=== PATIENT | female | born 1940 | race Caucasian/White ===

== ENCOUNTER → 2020-07-01 | Outpatient (CLI) | payer OTHER, BC ==
[~2020-07-01] VITALS: Ht 162.6 cm; Wt 68.0 kg
[~2020-07-01] MED LIST: AMBIEN 5 MG TABL5 M1 PO; AMLODIPINE BESY10 MG PO; DEXILANT60 MG PO; DIAZEPAM 2MG TAB2 MG PO; HYDROCODON-ACE1 EAC7 PO; LIPITOR40 MG PO; METHYLPHENIDATE20 M7 PO; MICARDIS 80 MG80 MG PO; PRISTIQ100 MG PO; TRIAMTERENE-HC1 EAC3 PO; ZANAFLEX4 M1 PO
[2020-07-01 13:50] VITALS: BP 145/72
--- NOTE | 2020-07-01 14:21 | NUR ---
Pain Clinic Assessment: 1. History of Osteoarthritis: HIPS WRISTS SPINE History of Rheumatoid Arthritis: Not Applicable 2. Height: 5 ft. 4 in. 162.6 cm. Weight: 150.0 lb. oz. 68.040 kg. Patient's BMI: 25.7 3. Vital Signs: BP: 145/72 Pulse: 80 Resp: 20 Temp: 02 Sat: 100 ECG Mon: 4. Pain Intensity: 6-8 5. Fall Risk: Dizziness: Y Needs help standing or walking: Y Fallen in the last 3 months: N Fall risk comments: 6. Patient on Blood Thinner: None 7. History of Hypertension: Y 8. Opioid Therapy greater than 6 weeks: N Opiate Contract Signed: 9. Risk Assessment Tool Provided: 2-LOW RISK 10. Functional Assessment Tool: 11. Recreational Drug Use: Never Drug Type: Tobacco Use: Never Smoker Tobacco Type: Amount or Packs/day: How Many Years: Alcohol Use: Yes Frequency: Weekly Quant: 4-5 DRINKS
--- NOTE | 2020-07-09 11:11 | HPC ---
[facility] [address] [place] [address] PAIN MANAGEMENT CONSULTATION Name: LISBET KUMAR Room #: REG Maurice Delbert.#: [id number] Admission: 07/01/20 Attend Phys: Carlos Hickey DO Discharge: Date of : 42 Report #: [id number] CC: Carlos Samson MD DATE OF SERVICE: 07/01/2020 CHIEF COMPLAINT: Neck pain. HISTORY OF PRESENT ILLNESS: As you know, the patient is a very pleasant 79-year-old female who reports acute onset of neck pain that began 05/20/2020. The patient denies injury or trauma that may have led to symptom development. She sought evaluation through her primary care physician as her symptoms did not improve with conservative treatment such as hcyz-[id number]-[id number] medications, rest and relaxation. She was sent for physical therapy and has been undergoing physical therapy for the past 3 weeks with transient improvement in health. She continues to take Aleve and Tylenol with some efficacy. She has recently received a prescription of hydrocodone, which she reports is somewhat beneficial. Due to lack of improvement with conservative treatment options, the patient was referred to our clinic to discuss options for treatment for neck pain. The patient indicates today her pain is continuous, steady and constant. She describes her pain as aching, throbbing and tender. She places current pain score 6/10, daily average is 6-8/10, worst pain has been is 8/10. The patient states that her pain is exacerbated with movement of the head and neck, improves with remaining still and physical therapy. She has been referred to our service to discuss treatment options for axial cervical spine pain. PAST MEDICAL HISTORY: 1. Insomnia. 2. Osteoarthritis. 3. GERD. 4. Anxiety disorder. 5. Depression. 6. 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 7. Human papilloma virus. PAST SURGICAL HISTORY: Hysterectomy, bilateral knee replacement. SOCIAL HISTORY: The patient reports she is a lifelong nonsmoker. Denies IV or illicit drug use. Denies any chronic alcohol use. She is . 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 She is not receiving workmen's compensation nor is she trying to obtain disability benefits. She is not in litigation in regards to pain. REVIEW OF SYSTEMS: Positive for fatigue and weakness, frequent and recurrent headaches, eye disease, cataracts, hearing loss with tinnitus, nocturia, frequent and recurrent headaches, depression and nervousness. All other review of systems negative per 12-point review of systems other than those listed in history of present illness. Pain impact score 20/70, mild interference of daily activities secondary to pain. ALLERGIES: PENICILLIN, AMPICILLIN AND ERYTHROMYCIN. CURRENT MEDICATIONS: Diazepam 2 mg once a day, tizanidine 4 mg t.i.d. p.r.n., hydrocodone/acetaminophen 5/325 1 to 2 tabs p.o. q. 8 hours p.r.n. for pain, amlodipine 10 mg per day, zolpidem 5 mg p.o. at bedtime, methylphenidate 20 mg twice a day, desvenlafaxine 100 mg once a day, atorvastatin 40 mg once a day, telmisartan 80 mg once a day, triamterene/hydrochlorothiazide 75/50 one tab per day, Dexilant 60 mg per day. IMAGING: MRI of the brain without contrast shows cerebral atrophy with extensive small vessel ischemic disease. No evidence of acute infarct, mass or hemorrhage. MRI of the cervical spine obtained on 06/24/2020 shows multilevel degenerative disk disease and facet hypertrophy. There is no significant central canal stenosis. There is zuxz-jm-[id number] foraminal stenosis at multiple levels, mainly at the C3-C4, C4-C5, C5-C6 levels. PQRS: The patient has arthritic changes of the cervical spine and lumbar spine as well as bilateral hips, status post arthroplasty, bilateral knees. No rheumatoid arthritis. She is placing current pain score 6-8/10. She is a fall risk, but has not had a fall in last 3 months. She does not use any type of ambulatory device. She is not on blood thinners, but is treated for hypertension. She is on opioids, but has a low opiate addiction potential based on our assessment tool. Pain impact is 70, mild to moderate interference of daily activities secondary to pain. PHYSICAL EXAMINATION: VITAL SIGNS: Blood pressure 145/72, pulse 80, respiratory rate 20 and unlabored. The patient is 100% on room air. Height 5 feet 4 inches tall, weight 150 pounds, BMI calculated 25.7. GENERAL: Well-developed, well-nourished, well-hydrated, 79-year-old female. She appears her stated age. She is in no acute distress. Pain today is rated at the highest 6-8/10. HEENT: Normocephalic, atraumatic. Pupils are round and reactive. LUNGS: The patient is able to complete sentences without shortness of air. There is no noted coughing or wheezing. CARDIOVASCULAR: Appears regular. EXTREMITIES: Show no clubbing, no cyanosis, and no edema. MUSCULOSKELETAL: Upper extremity strength is equal and symmetrical 5/5. She is intact to light touch from C5-T1 dermatomes. Deep tendon reflexes are symmetrical at biceps, brachioradialis and triceps. Spurling's test is negative. Cervical provocation testing is met with increasing pain. There is palpatory tenderness over the paraspinal musculature of the cervical region. No radicular component. ASSESSMENT: 1. Chronic cervicalgia. 2. Cervical spondylosis without radiculopathy. 3. Myofascial pain. PLAN: 1. Based on today's physical exam and history the patient has provided, the descriptors the patient uses in regards to pain as well as the distribution of symptoms, likely source of the patient's pain is cervical facets. She does not have any radicular component to her symptoms at present nor has she provided any in her recent history. She has been undergoing physical therapy, but has not trialled traction techniques, which I think would be quite beneficial nor is she a trial of myofascial release techniques that would also be much more beneficial than just a simple movement mechanics work that she has been doing today. We also discussed the following treatment options with the patient to address her symptoms further. We discussed physical therapy with the traction techniques as above. We also discussed acupuncture therapy, percutaneous electrical nerve stimulation, myofascial release and chiropractic manipulation as treatment options. We discussed medication management with suggestions of treatment to utilize a consistent nonsteroidal anti-inflammatory and the possible addition of a muscle relaxant on a consistent basis to address the paraspinal muscle spasming she is experiencing in the cervical region. We also discussed adjustments in her bedding to allow for more of a contour pillow, which will put the patient in a more anatomical position from a cervical standpoint. We also discussed interventional treatments that we do not offer radiofrequency lesioning of the cervical facet joints. If this is necessary, we would have the patient then return to her PCP for referral to another clinic to provide that option. We did discuss surgical options, though at this point, I do not feel they would be beneficial. After reviewing the risks and benefits of all proposed treatment options, the patient chose to begin with a more conservative approach. She is going to adjust her physical therapy and look into acupuncture therapy, myofascial release and percutaneous electrical nerve stimulation as well as even looking towards Botox injections to address chronic cervicalgia. 2. The patient will be following up with either [facility] or [facility] in regards to myofascial release and acupuncture as well as percutaneous electrical nerve stimulation. I do feel this would be quite beneficial and has little or no downside from a side effect profile. She will adjust these treatments through [facility] and if that is not available through [facility] or other facilities she feels comfortable with. 3. We made no changes in the patient's medication today. We recommend continuing current therapy. 4. We will see the patient back in followup visit on an as needed basis to address chronic cervicalgia and axial cervical spine pain. Again, we wish to thank you for the opportunity to see this patient in consultation. We will keep you apprised of her response to treatment if we choose to move forward with interventional therapies. <ELECTRONICALLY SIGNED> By: Carlos Hickey DO 07/09/20 [id number] Carlos Hickey DO /nt
== END ==
LOC: PAIN 06:53
PROVIDERS: ATTEND Anesthesiology Pain Medicine
DX: M47.812 Spondylosis without myelopathy or radiculopathy, cervical region (principal); M79.10 Myalgia, unspecified site; Z88.8 Allergy status to other drugs, medicaments and biological substances; Z79.899 Other long term (current) drug therapy